=== PATIENT | female | born 1950 | race Caucasian/White ===

== ENCOUNTER → 2017-09-06 | Outpatient (CLI) | payer MEDICARE, BC | END | disposition home or self-care (01) | LOC: OLS 15:11 → LAB SHORT 15:11 | PROVIDERS: Nurse Practitioner Women's Health | DX: Z12.4 Encounter for screening for malignant neoplasm of cervix (principal); Z91.89 Other specified personal risk factors, not elsewhere classified | CPT/HCPCS: 87624; G0123 ==

== ENCOUNTER 2017-10-23 07:40 | Day surgery (SDC) | payer MEDICARE, BC ==
[~2017-10-23] VITALS: Ht 152.4 cm; Wt 81.2 kg
[2017-10-23] MEDS ORDERED: HYDRA25 (08:10)
[2017-10-23] MEDS ORDERED: Alora1 EAC1 (08:11)
[2017-10-23] MEDS ORDERED: Azor 5-20 MG T1 EACH (08:11)
[2017-10-23] MEDS ORDERED: IRON150C (08:12)
[2017-10-23] MEDS ORDERED: CHOL10002 (08:12)
[2017-10-23] MEDS ORDERED: ASPI81CH (08:12)
[2017-10-23] MEDS ORDERED: SIMV10 (08:13)
[2017-10-23] MEDS ORDERED: ASCO500 (08:13)
[2017-10-23] MEDS ORDERED: CYAN500 (08:14)
[2017-10-23] MEDS ORDERED: Aygestin5 MG (08:14)
== END 2017-10-23 09:45 | disposition home or self-care (01) ==
LOC: ORSCSDS 07:40
PROVIDERS: Internal Medicine Gastroenterology
PROC: 0DJD8ZZ Inspection of Lower Intestinal Tract, Via Natural or Artificial Opening Endoscopic (ICD-10-PCS; principal; 2017-10-23 09:00)
DX: Z12.11 Encounter for screening for malignant neoplasm of colon (principal); Z86.010 Personal history of colon polyps; K57.30 Diverticulosis of large intestine without perforation or abscess without bleeding; E66.9 Obesity, unspecified; Z68.35 Body mass index [BMI] 35.0-35.9, adult; Z79.82 Long term (current) use of aspirin; Z79.899 Other long term (current) drug therapy
CPT/HCPCS: J0330; J1980; J2405; J7120

== ENCOUNTER → 2018-09-10 | Outpatient (CLI) | payer MEDICARE, BC ==
[~2018-09-10] MED LIST: ABAT250V; ASCO500 PO; ASPI81CH PO; Alora1 EAC1 TOP; Aygestin5 MG PO; Azor 5-20 MG T1 EACH PO; CEFP200 PO; CYAN500 PO; HYDRA25 PO; IRON150C PO; OLME20 PO; POTA10T PO; SIMV10 PO; VITAMIN D31000 UNI2 PO; Vitamin B Comple1 EA PO
[2018-09-12 15:06] LABS: HPV 16 Negative (Negative); HPV 18 Negative (Negative); HPV OTHER HR TYPES Negative (Negative)
== END | disposition home or self-care (01) ==
LOC: LAB SHORT 17:21 → LAB 17:21
PROVIDERS: Nurse Practitioner Women's Health
DX: Z12.4 Encounter for screening for malignant neoplasm of cervix (principal); Z91.89 Other specified personal risk factors, not elsewhere classified
CPT/HCPCS: 87624; G0123

== ENCOUNTER 2018-12-27 15:39 | Observation (INO) | payer MEDICARE, BC ==
[~2018-12-27] VITALS: Ht 152.4 cm; Wt 82.0 kg
[~2018-12-27 15:39] MED LIST changes: -ABAT250V; -CEFP200 PO; -OLME20 PO; -POTA10T PO; -Vitamin B Comple1 EA PO
[2018-12-27 16:10] LABS: BASOPHILS ABSOLUTE AUTO 0.04 K/mm3 (0.00-0.23); BASOPHILS PERCENT AUTO 0 % (0-2); EOSINOPHILS ABSOLUTE AUTO 0.08 K/mm3 (0.00-0.68); EOSINOPHILS PERCENT AUTO 1 % (0-6); Hematocrit 41.5 % (33.0-51.0); Hemoglobin 13.7 g/dL (11.5-16.0); IMMATURE GRAN ABSOLUTE AUTO 0.05 K/mm3 (0.00-0.10); IMMATURE GRAN PERCENT AUTO 0 % (0-1); LYMPHOCYTES ABSOLUTE AUTO 2.21 K/mm3 (0.84-5.20); LYMPHOCYTES PERCENT AUTO 18 % (21-46); MONOCYTES ABSOLUTE AUTO 1.15 K/mm3 (0.16-1.47); MONOCYTES PERCENT AUTO 9 % (4-13); Mean Corpuscular Volume 91 fL (80-100); Mean Platelet Volume 10.2 fL (9.1-12.4); NEUTROPHILS ABSOLUTE AUTO 9.07 K/mm3 (1.96-9.15); NEUTROPHILS PERCENT AUTO 72 % (41-73); Platelet Count 360 K/mm3 (150-400); RDW Coefficient Variation 12.9 % (11.7-14.2); RDW Standard Deviation 42.8 fL (35.1-46.3); Red Blood Cell Count 4.56 M/mm3 (3.80-5.20)
[2018-12-27 16:28] LABS: Alanine Aminotransfer (ALT/SGP 21 U/L (12-78); Albumin, Blood 3.7 g/dL (3.4-5.0); Albumin/Globulin Ratio 1.1 (0.8-1.8); Alk Phos 57 U/L (50-136); Anion Gap 11 mmol/L (6-16); Aspartate Aminotrans (AST/SGOT 27 U/L (12-37); Bilirubin, Total 0.6 mg/dL (0.1-1.0); Blood Urea Nitrogen 18 mg/dL (8-24); Bun/Creatinine Ratio 25.9 (12.0-20.0); CO2, Blood 19 mmol/L (21-32); Calcium, Blood 9.2 mg/dL (8.5-10.1); Chloride, Blood 105 mmol/L (98-108); Globulin, Blood 3.5 g/dL (2.2-4.0); Glomerular Filtration Rate >60 (60-); Glucose, Blood 102 mg/dL (70-99); Sodium, Blood 135 mmol/L (136-145); Total Protein, Blood 7.2 g/dL (6.4-8.2)
[2018-12-27 18:57] LABS: Source, Urine Clean Catch
[2018-12-27 19:02] LABS: Appearance, Urine Clear (Clear); Bilirubin, Urine Neg (Neg); Blood, Urine 5+ (Neg); Color, Urine Yellow (P-Yellow); Glucose Qualitative, Urine Neg (Neg); Ketones, Urine 3+ (Neg); Leukocyte Esterase, Urine 3+ (Neg); Nitrite, Urine Neg (Neg); Protein, Urine Neg (Neg); Specific Gravity, Urine 1.015 (1.003-1.022); Urobilinogen, Urine NORM (Normal); pH, Urine 6.5 (5.0-8.0)
[2018-12-27 19:16] LABS: Bacteria Mod /hpf; Hyaline Casts 0-2 /lpf (0-2); Squamous Epithelial Cells Few /hpf (Few)
--- NOTE | 2018-12-27 23:59 | NUR ---
2340 PT ADMITTED TO ROOM 339 PER CART FROM ER.
[2018-12-28] MEDS ORDERED: Vitamin B Comple1 EA PO (00:03)
[2018-12-28] MEDS ORDERED: ABAT250V (00:03)
--- NOTE | 2018-12-28 04:47 | NUR ---
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
[2018-12-28 05:42] LABS: Hematocrit 37.5 % (33.0-51.0); Hemoglobin 12.3 g/dL (11.5-16.0); Mean Corpuscular HGB 29.7 pg (26.0-34.0); Mean Corpuscular HGB Conc 32.8 g/dL (31.5-36.5); Mean Corpuscular Volume 91 fL (80-100); Mean Platelet Volume 10.3 fL (9.1-12.4); Platelet Count 336 K/mm3 (150-400); RDW Coefficient Variation 13.2 % (11.7-14.2); RDW Standard Deviation 43.3 fL (35.1-46.3); Red Blood Cell Count 4.14 M/mm3 (3.80-5.20); White Blood Cell Count 8.08 K/mm3 (4.00-11.30)
[2018-12-28 06:05] LABS: Alanine Aminotransfer (ALT/SGP 17 U/L (12-78); Albumin, Blood 2.9 g/dL (3.4-5.0); Alk Phos 45 U/L (50-136); Anion Gap 4 mmol/L (6-16); Aspartate Aminotrans (AST/SGOT 17 U/L (12-37); Bilirubin, Total 0.7 mg/dL (0.1-1.0); Blood Urea Nitrogen 11 mg/dL (8-24); CO2, Blood 27 mmol/L (21-32); Calcium, Blood 8.7 mg/dL (8.5-10.1); Chloride, Blood 109 mmol/L (98-108); Creatinine, Blood 0.65 mg/dL (0.40-1.00); Globulin, Blood 2.8 g/dL (2.2-4.0); Glomerular Filtration Rate >60 (60-); Glucose, Blood 91 mg/dL (70-99); Potassium, Blood 3.8 mmol/L (3.5-5.5); Sodium, Blood 140 mmol/L (136-145); Total Protein, Blood 5.7 g/dL (6.4-8.2)
--- NOTE | 2018-12-28 11:44 | NUR ---
upon recieving a spiritual care referreal, I visited patient. Patient openly shares about her medical issues, her family and her yadiel. I provide pastoral certified alcohol and drug counselor, empathic listening and emotional support. Patient responds well and voices appreciation for the visit.
[2018-12-28] MEDS ORDERED: CEFP200 PO (14:10)
[2018-12-28] MEDS ORDERED: OLME20 PO (14:11)
[2018-12-28] MEDS ORDERED: POTA10T PO (14:11)
--- NOTE | 2018-12-28 15:18 | NUR ---
DISCHARGE DISCHARGE INSTRUCTIONS, MEDICATION LIST AND FOLLOW UP APPOINTMENTS REVIEWED WITH PT AND HER SPOUSE. QUESTIONS/CONCERNS ANSWERED. [facility] WILL CONTACT PT ON MONDAY/MONDAY WITH AN APPOINTMENT WITH PT'S PCP KAYODE REEDER. LAB WORK DATE WAS PREVIOUSLY ORDERED AND PT WILL KEEP. ESCORTED OUT VIA W/C BY JACOB
== END 2018-12-28 15:18 | disposition home or self-care (01) ==
LOC: ER 15:39 → MEDS 15:40
PROVIDERS: Physician Assistant; ADMIT Internal Medicine
DX: R29.898 Other symptoms and signs involving the musculoskeletal system (principal); R20.2 Paresthesia of skin; N39.0 Urinary tract infection, site not specified; E87.6 Hypokalemia; M51.36 Other intervertebral disc degeneration, lumbar region; M47.816 Spondylosis without myelopathy or radiculopathy, lumbar region; I10 Essential (primary) hypertension; D50.9 Iron deficiency anemia, unspecified; E78.5 Hyperlipidemia, unspecified; Z79.899 Other long term (current) drug therapy; Z79.82 Long term (current) use of aspirin
CPT/HCPCS: 36415; 71045; 72100; 72158; 80053; 81001; 83605; 83735; 83880; 85025; 85027; 87040; 87086; 93005; 93010; 96361; 96365; 96372; 96375; 97116; 97161; 97165; 97530; 97535; 99285-25; A9577; G0378; J0696; J1650; J3480; J7030; J7120

== ENCOUNTER 2019-11-22 10:47 | Day surgery (SDC) | payer MEDICARE, BC ==
[~2019-11-22] VITALS: Ht 152.4 cm; Wt 83.4 kg
[~2019-11-22 10:47] MED LIST changes: +ABAT250V; +CEFP200 PO; +OLME20 PO; +POTA10T PO; +Vitamin B Comple1 EA PO
--- NOTE | 2019-11-22 12:22 | NUR ---
11/22/19 Brad2 MONTSERRAT BOATENG 5 ATTEMPTS TO SECURE IV PATENT IV SITE.
== END 2019-11-22 15:10 | disposition home or self-care (01) ==
LOC: ORSCSDS 10:47
PROVIDERS: Podiatrist Foot & Ankle Surgery
PROC: 0QSR04Z Reposition Left Toe Phalanx with Internal Fixation Device, Open Approach (ICD-10-PCS; principal; 2019-11-22 12:30)
PROC: 0SGN04Z Fusion of Left Metatarsal-Phalangeal Joint with Internal Fixation Device, Open Approach (ICD-10-PCS; principal; 2019-11-22 12:30)
DX: M20.12 Hallux valgus (acquired), left foot (principal); M21.612 Bunion of left foot; I10 Essential (primary) hypertension; Z79.899 Other long term (current) drug therapy; E66.01 Morbid (severe) obesity due to excess calories; Z68.35 Body mass index [BMI] 35.0-35.9, adult
CPT/HCPCS: C1713; C1776; J0171; J0690; J1100; J2250; J2405; J2704; J3010; J7120

== ENCOUNTER 2024-04-30 12:44 | Day surgery (SDC) | payer MEDICARE, BC ==
[~2024-04-30] VITALS: Ht 152.4 cm; Wt 74.5 kg
[~2024-04-30 12:44] MED LIST changes: +Balanced Salt Epinephrine Irrigation Solution 500 mL IR SCH; +Lidocaine HCl/Pf 1% 5 ML VIAL XX SCH; +Moxifloxacin HCL 0.5 MG/0.1 ML 0.4MLSYR RIGHTEYE SCH; +PHENYLEPHRINE\\TROPICAMIDE\\TETRACAINE OPHTHALMIC DILATING SOLN RIGHTEYE PRN; +Povidone-Iodine 450 DROP/30 ML Solution ONE; +Povidone-Iodine 450 DROP/30 ML Solution RIGHTEYE SCH; +Tetracaine HCl/Pf 0.5% Opth Soln 4 ml ONE
[2024-04-30] MEDS ORDERED: Simvastatin10 MG PO (13:26)
[2024-04-30] MEDS ORDERED: Midazolam HCl 1MG / ML 2ML Vial ONE (13:28)
[2024-04-30] MEDS ORDERED: FentaNYL Citrate 50 MCG/ML 2 ML Injection ONE (13:28)
[2024-04-30] MEDS ORDERED: NS 500 ML IV ONE (13:31)
[2024-04-30 14:19] VITALS: BP 130/62
== END 2024-04-30 14:42 | disposition home or self-care (01) ==
LOC: ORSCSDS 12:44
PROVIDERS: Student in an Organized Health Care Education/Training Program
PROC: 08RJ3JZ Replacement of Right Lens with Synthetic Substitute, Percutaneous Approach (ICD-10-PCS; principal; 2024-04-30 14:30)
DX: H25.89 Other age-related cataract (principal); I10 Essential (primary) hypertension; E78.5 Hyperlipidemia, unspecified; Z79.82 Long term (current) use of aspirin; Z79.899 Other long term (current) drug therapy
CPT/HCPCS: J2250; J3010; V2632

== ENCOUNTER 2024-05-15 09:48 | Day surgery (SDC) | payer MEDICARE, BC ==
[~2024-05-15] VITALS: Ht 152.4 cm; Wt 74.4 kg
[~2024-05-15 09:48] MED LIST changes: +Diazepam 5 MG Tab PO PRN; +Diazepam 5 MG Tab PO SCH; +Moxifloxacin HCL 0.5 MG/0.1 ML 0.4MLSYR LEFTEYE SCH; -Moxifloxacin HCL 0.5 MG/0.1 ML 0.4MLSYR RIGHTEYE SCH; +Ondansetron 4 MG SoluTab MM PRN; +PHENYLEPHRINE\\TROPICAMIDE\\TETRACAINE OPHTHALMIC DILATING SOLN LEFTEYE PRN; -PHENYLEPHRINE\\TROPICAMIDE\\TETRACAINE OPHTHALMIC DILATING SOLN RIGHTEYE PRN; +Povidone-Iodine 450 DROP/30 ML Solution LEFTEYE SCH; -Povidone-Iodine 450 DROP/30 ML Solution RIGHTEYE SCH; +Simvastatin10 MG PO
[2024-05-15] MEDS ORDERED: FentaNYL Citrate 50 MCG/ML 2 ML Injection ONE (11:02)
[2024-05-15] MEDS ORDERED: Midazolam HCl 1MG / ML 2ML Vial ONE (11:02)
[2024-05-15 11:28] VITALS: BP 116/65
== END 2024-05-15 11:37 | disposition home or self-care (01) ==
LOC: ORSCSDS 09:48
PROVIDERS: Student in an Organized Health Care Education/Training Program
PROC: 08RK3JZ Replacement of Left Lens with Synthetic Substitute, Percutaneous Approach (ICD-10-PCS; principal; 2024-05-15 11:30)
DX: H25.812 Combined forms of age-related cataract, left eye (principal); Z96.1 Presence of intraocular lens; H04.123 Dry eye syndrome of bilateral lacrimal glands; I10 Essential (primary) hypertension; E78.5 Hyperlipidemia, unspecified; Z79.82 Long term (current) use of aspirin; Z79.899 Other long term (current) drug therapy
CPT/HCPCS: J2250; J3010; V2632